=== PATIENT | female | born 1990 | race African-American/Black ===

== ENCOUNTER 2019-02-01 19:45 | Emergency (ER) | payer OTHER ==
[~2019-02-01] VITALS: Ht 182.9 cm; Wt 77.0 kg
[2019-02-01] MEDS ORDERED: KETOROLAC 30MG/ML VIAL IV STA (22:15)
[2019-02-01] MEDS ORDERED: SODIUM CHLORIDE 0.9% 1,000 ML IV ONE (22:15)
[2019-02-01 22:40] LABS: BASOPHILS % 0.5 % (0.0-2.0); EOSINOPHILS % 1.5 % (0.0-5.0); HEMATOCRIT. 36.5 % (36.0-48.0); HEMOGLOBIN. 12.7 g/dL (12.0-16.0); MEAN CORPUSCULAR HEMOGLOBIN 30.5 pg (28.0-32.0); MEAN CORPUSCULAR VOLUME 88.1 fL (81.0-99.0); MEAN PLATELET VOLUME 7.2 fl (7.4-10.4); MONOCYTES % 10.3 % (2.0-8.0); NEUTROPHILS % 74.7 % (40.0-76.0); PLATELET 339 x1000/uL (130-400); RED BLOOD CELL COUNT 4.14 mill/uL (4.2-5.4); RED CELL DISTRIBUTION WIDTH 12.7 % (11.6-14.6)
[2019-02-01 22:43] LABS: CLARITY URINE CLOUDY (CLEAR); COLOR URINE DARK YELLOW (YELLOW); KETONES URINE NEGATIVE (NEGATIVE); LEUKOCYTE ESTERASE URINE 2+ (NEGATIVE); NITRITE URINE NEGATIVE (NEGATIVE); OCCULT BLOOD URINE 3+ (NEGATIVE); PH URINE 5.5 (4.5-8.0); PROTEIN URINE 1+ (NEGATIVE); SPECIFIC GRAVITY URINE 1.035 (1.005-1.030)
[2019-02-01 22:46] LABS: CHLORIDE 105 mEq/L (98-107)
[2019-02-01 22:56] LABS: *AMPHETAMINES SCREEN URINE NEGATIVE (NEGATIVE); *BARBITURATES SCREEN URINE NEGATIVE (NEGATIVE); *BENZODIAZEPINES SCREEN URINE NEGATIVE (NEGATIVE); *COCAINE SCREEN URINE NEGATIVE (NEGATIVE); METHADONE URINE SCREEN NEGATIVE (NEGATIVE); OPIATES URINE SCREEN NEGATIVE (NEGATIVE)
[2019-02-01 22:58] LABS: PHENCYCLIDINE URINE SCREEN NEGATIVE (NEGATIVE)
[2019-02-01 22:59] LABS: CANNABINOID URINE SCREEN PRESUMTIVE POSITIVE (NEGATIVE)
[2019-02-01] MEDS ORDERED: HALOPERIDOL LACTATE 5MG/ML VIAL IM ONE (23:45)
[2019-02-01] MEDS ORDERED: PHENAZOPYRIDINE HCL 100MG TABLET PO ONE (23:45)
[2019-02-02] MEDS ORDERED: CEFTRIAXONE 1 G PREMIX 50 ML IV SCH
[2019-02-02] MEDS ORDERED: DEXTROSE 50% WATER 50ML SYRINGE IV ONE (00:30)
[2019-02-02 00:38] VITALS: BP 124/81
== END 2019-02-02 00:52 | disposition home or self-care (01) ==
LOC: ER 22:24
DX: N39.0 Urinary tract infection, site not specified (principal); F12.10 Cannabis abuse, uncomplicated; J45.909 Unspecified asthma, uncomplicated; R61 Generalized hyperhidrosis; Z98.890 Other specified postprocedural states
CPT/HCPCS: 36415; 74176; 80053; 80305; 81003; 81025; 83690; 85025; 87086; 93005; 96365; 96372; 96375; 99284; J0696; J1630; J1885; J7030; Z7610

== ENCOUNTER 2020-01-18 22:43 | Emergency (ER) | payer MEDICAID, OTHER ==
[~2020-01-18] VITALS: Ht 182.9 cm; Wt 86.0 kg
[2020-01-18] MEDS ORDERED: CEPHALEXIN 250MG CAPSULE PO NR (23:45)
[2020-01-19] MEDS ORDERED: ACETAMINOPHEN 325MG TABLET PO NR
[2020-01-19 00:19] VITALS: BP 130/79
== END 2020-01-19 00:20 | disposition home or self-care (01) ==
LOC: ER 22:43
DX: L03.115 Cellulitis of right lower limb (principal); R03.0 Elevated blood-pressure reading, without diagnosis of hypertension
CPT/HCPCS: 73630; 99283